=== PATIENT | female | born 1965 | race Caucasian/White ===

== ENCOUNTER 2016-08-24 08:41 | Emergency (ER) | payer OTHER ==
[2016-08-24] MEDS ORDERED: ASPIRIN CHEWTAB 81 MG TABLET ONE (09:11)
[2016-08-24 09:34] LABS: BASO % 0.4 % (0.2-1.0); EOS # 0.2 (0.0-0.5); EOS % 2.6 % (0.9-2.9); HEMATOCRIT 40.8 % (37.0-47.0); HEMOGLOBIN 13.5 gm/l (12.0-16.0); IMM NEUT% 0.1 % (0-1); LYMPH # 2.1 (1.0-4.8); LYMPH % 30.4 % (15-45); MEAN CELL VOLUME 91.3 fl (81.0-99.0); MEAN CORPUSCULAR HEMOGLOBIN 30.2 pg (27.0-31.0); MEAN CORPUSCULAR HGB CONC 33.1 g/dl (33.0-37.0); MEAN PLATELET VOLUME 10.9 fl (7.4-10.4); MONO # 0.5 (0.0-0.8); MONO % 7.6 % (4-12); NEUT % 58.9 % (43-75); PLATELET COUNT 190 K/mm3 (130-400); RED CELL DISTRIBUTION WIDTH 13.4 % (11.5-14.5)
--- NOTE | 2016-08-24 09:40 | RAD ---
08/24/2016 9:36 AM CHEST - 2 VIEWS History: Shortness of breath and chest pressure Comparison: None Findings: Two views of the chest are obtained. The lungs are clear with out effusion or pneumothorax. The cardiomediastinal silhouette is unremarkable.. The osseous structures are intact.. IMPRESSION: No acute intrathoracic process.
[2016-08-24 09:44] LABS: ALB/GLOB RATIO 1.4 (>1.0); ALBUMIN 4.1 gm/dL (3.5-5.7); CALCIUM 9.2 mg/dL (8.6-10.3)
[2016-08-24 09:56] LABS: TROPONIN I < 0.01 ng/ml (0.0-0.06)
[2016-08-24 10:00] LABS: CKMB ISOENZYME 1.3 ng/ml (0.6-6.3)
== END 2016-08-24 09:41 | disposition short-term general hospital (02) ==
LOC: ED 08:41
DX: I21.3 ST elevation (STEMI) myocardial infarction of unspecified site (principal); E03.9 Hypothyroidism, unspecified